=== PATIENT | female | born 1980 | race Caucasian/White ===

== ENCOUNTER 2017-07-23 13:12 | Emergency (ER) | payer MEDICAID | END 2017-07-23 15:28 | disposition home or self-care (01) | LOC: D.ER 13:12 | DX: K08.89 Other specified disorders of teeth and supporting structures (principal); F17.200 Nicotine dependence, unspecified, uncomplicated ==

== ENCOUNTER 2017-11-01 19:38 | Emergency (ER) | payer MEDICAID | END 2017-11-01 22:00 | disposition home or self-care (01) | LOC: D.ER 19:38 | DX: R07.89 Other chest pain (principal); S16.1XXA Strain of muscle, fascia and tendon at neck level, initial encounter; V43.52XA Car driver injured in collision with other type car in traffic accident, initial encounter; Y93.89 Activity, other specified; Y92.410 Unspecified street and highway as the place of occurrence of the external cause ==

== ENCOUNTER 2017-11-08 18:25 | Emergency (ER) | payer MEDICAID | END 2017-11-08 19:40 | disposition home or self-care (01) | LOC: D.ER 18:25 | DX: S16.1XXA Strain of muscle, fascia and tendon at neck level, initial encounter (principal); V89.2XXA Person injured in unspecified motor-vehicle accident, traffic, initial encounter; Y93.89 Activity, other specified; Y92.410 Unspecified street and highway as the place of occurrence of the external cause; F17.200 Nicotine dependence, unspecified, uncomplicated ==